=== PATIENT | male | born 1995 | race Caucasian/White ===

== ENCOUNTER 2022-04-17 08:50 | Outpatient (CLI) | payer BC, SELFPAY ==
--- NOTE | 2022-04-17 09:00 | CRLHL7_ITS ---
For Patients: As a result of the Century Cures Act, medical imaging exams and procedure reports are released immediately into your electronic medical record. You may view this report before your referring provider. If you have questions, please contact your health care provider. INDICATION: Dermoid cyst above the right eyebrow. TECHNIQUE: Noncontrast head CT. FINDINGS: No acute intracranial hemorrhage or hydrocephalus. No mass effect or shift of midline structures. No evidence for cerebral or cerebellar atrophy. The bryson white matter junction is preserved. The calvarium and skull base are unremarkable. The included paranasal sinuses and mastoid air cells are clear. There is a well-circumscribed fat containing low-attenuation lesion along the superior lateral right orbit, image 63 series 6 measuring 1.3 x 1.1 cm. This is also seen on image 18 series 2 and on this image this lesion measures 0.8 x 1.4 cm. Please also see coronal reconstructed image 11 series 8. There does not appear to be any bony erosion or destruction. IMPRESSION: 1. Well-circumscribed fat containing lesion along the superior lateral right orbital region reportedly the known dermoid cyst. 2. The examination is otherwise negative. Please note that all CT scans at this facility use dose modulation, iterative reconstruction, and/or weight-based dosing when appropriate to reduce radiation dose to as low as reasonably achievable. Dictated by Rinku Kennedy MD @ 04/17/2022 9:42:36 AM (Electronically Signed)
== END 2022-04-17 08:51 | disposition home or self-care (01) ==
PROVIDERS: PCP Plastic Surgery; Visit Provider Plastic Surgery
DX: D16.4 Benign neoplasm of bones of skull and face (principal)
CPT/HCPCS: 70450

== ENCOUNTER 2024-10-13 10:02 | Outpatient (CLI) | payer BC, SELFPAY | END 2024-10-13 10:03 | disposition home or self-care (01) | PROVIDERS: PCP Family Medicine; Visit Provider Family Medicine | DX: A69.20 Lyme disease, unspecified (principal) | CPT/HCPCS: 86618; 87468; 87469; 87484; 87798 ==